=== PATIENT | male | born 1975 | race Asian ===

== ENCOUNTER 2016-09-28 17:40 | Emergency (ER) | payer SELFPAY ==
[~2016-09-28] VITALS: Ht 177.8 cm; Wt 81.6 kg
--- NOTE | 2016-09-28 18:00 | Emergency Room Report ---
History of Present Illness General Chief Complaint: Alcohol Intoxication Source: EMS (ANGELA MANZO) Present Illness HPI The patient is a 41-year-old male brought in by ambulance from his apartment for acute alcohol intoxication. The patient refuses to provide any information regarding alcohol use or personal information. Patient denies any pain. Pt continues to fall asleep and does not answer questions. (ANGELA MANZO) Allergies: Coded Allergies: No Known Allergies (Unverified , 09/28/16) Patient History Past Medical History: see triage record Pertinent Family History: none Social History: Reports: alcohol use Reviewed Nursing Documentation: PMH: Agreed, PSxH: Agreed (ANGELA MANZO) Nursing Documentation-PMH Past Medical History Deferred: Pt Cognitively Impaired Past Medical History: No Stated History (ANGELA MANZO) Review of Systems All Other Systems: negative except mentioned in HPI (ANGELA MANZO.[place]) Physical Exam Vital Signs Date Time Temp Pulse Resp B/P Pulse Ox O2 Delivery O2 Flow Rate FiO2 09/28/16 17:34 98.8 84 20 148/88 96 Room Air Sp02 EP Interpretation: reviewed, normal General Appearance: no apparent distress, GCS 15, non-toxic, lethargic Head: normocephalic, atraumatic Eyes: bilateral eye PERRL, bilateral eye normal inspection ENT: hearing grossly normal, normal pharynx, no angioedema Neck: full range of motion, supple/symm/no masses Respiratory: chest non-tender, lungs clear, normal breath sounds, no wheezing, speaking full sentences Cardiovascular #1: regular rate, rhythm, no edema Musculoskeletal: back normal, gait/station normal, normal range of motion, non- tender Neurologic: responsive, sensory intact, normal gait Psychiatric: mood/affect normal Skin: normal color, no rash, warm/dry, well hydrated Lymphatic: no adenopathy (ANGELA MANZO) Medical Decision Making PA Attestation Dr. Hodges is my supervising physician. Patient management was discussed with my supervising physician (ANGELA MANZO) Diagnostic Impression: Primary Impression: Acute alcoholic intoxication ER Course The patient is a 41-year-old male brought in by ambulance from his apartment for acute alcohol intoxication DDx considered but not limited to: acute alcohol intoxication, hepatic encephalopathy, drug overdose, hypoglycemia, psychosis Physical exam: pt is mildly hypertensive. Otherwise vitals within normal limits. HEENT exam unremarkable. PERRL Abdomen is soft and nontender Lungs are clear to auscultation bilaterally RRR Skin warm and dry Normal gait Labs: Urine drug screen and blood alcohol level ordered Patient has eloped at this time. No labs were able to be obtained. (ANGELA MANZO) Last Vital Signs Date Time Temp Pulse Resp B/P Pulse Ox O2 Delivery O2 Flow Rate FiO2 09/28/16 17:34 98.8 84 20 148/88 96 Room Air Status: improved (ANGELA MANZO) Last Vital Signs Date Time Temp Pulse Resp B/P Pulse Ox O2 Delivery O2 Flow Rate FiO2 09/28/16 22:33 98.8 20 148/88 96 Room Air 09/28/16 17:34 84 (Jessee Hodges M.D.) Disposition: ELOPED Condition: Unknown Referrals: NOT CHOSEN DARSHANA/,REFERRING (PCP) ANGELA MANZO Sep 28, 2016 18:00 Jessee Hodges M.D. Oct 04, 2016 01:52
[2016-09-28 22:33] VITALS: BP 148/88
== END 2016-09-28 18:03 | disposition left against medical advice (07) ==
LOC: EDBD 17:40 → EMR 17:54
DX: F10.129 Alcohol abuse with intoxication, unspecified (principal)
CPT/HCPCS: 99283